=== PATIENT | male | born 1995 | race Hispanic/Latino ===

== ENCOUNTER 2018-10-03 11:29 | Emergency (ER) | payer OTHER, SELFPAY ==
[2018-10-03 11:33] VITALS: PULSE 75; RESP 14; TEMP 36.4; O2SAT 100
[2018-10-03 11:37] VITALS: BP 139/84; PULSE 78; RESP 18; O2SAT 100
--- NOTE | 2018-10-03 14:19 | DI.US.S_ITS ---
PROCEDURE: US SCROTUM INDICATIONS: LEFT TESTICULAR PAIN AND SWELLING TECHNIQUE: Real-time scanning was performed of the scrotum and testicles, with image documentation. Color and pulse Doppler interrogation was performed of both testicles. COMPARISON: None. FINDINGS: Right: Testicle is normal in size at 3.9 x 3.1 x 2.3 and cm, and homogenous in echotexture. Epididymis is normal in overall size and morphology. No hydrocele or varicoceles. Overlying scrotal skin is normal in thickness. A 6 mm epididymal head cyst is evident. Left: Testicle is normal in size at 4.0 x 2.9 x 2.0 cm, and homogeneous in echotexture. Epididymis is normal in overall size and morphology. No hydrocele or varicoceles. Overlying scrotal skin is normal in thickness. Doppler: Color and pulse Doppler demonstrate normal and symmetric arterial flow in both testicles. Other: There is a fat containing left inguinal hernia with a opening defect of 2.6 cm. No bowel is seen extending into this hernia. IMPRESSION: 1. No evidence of testicular torsion, epididymal orchitis, or testicular mass. 2. 6 mm epididymal head cyst. 3. Moderate-sized fat containing left renal hernia. Dictated by: Marbin Lovell M.D. on 10/03/2018 at 14:29 Approved by: Marbin Lovell M.D. on 10/03/2018 at 14:32
--- NOTE | 2018-10-03 14:22 | ED.MALEGU ---
HPI - Male Genitourinary General Chief complaint: Abdominal Pain Stated complaint: PAIN IN GROIN Time Seen by Provider: 10/03/18 14:12 Source: patient Mode of arrival: ambulatory Limitations: no limitations History of Present Illness HPI Narrative: Patient is a 23-year-old male who presents with all left testicular pain. He felt something happened 2 days ago when he was at work he bent over and lifted something he said it was uneven that heavy. He instantly felt some pain and swelling. It hurts every time he breathes or moves. Regular bowel movements although he does feel a discomfort with bowel movement. No nausea vomiting. No prior history of hernia MD Complaint: testicle pain Onset (ago): day(s) (2) Duration: constant Location: left testicle and left inguinal region Related Data Home Medications Medication Instructions Recorded Confirmed No Known Home Medications 10/03/18 10/03/18 Allergies Allergy/AdvReac Type Severity Reaction Status Date / Time No Known Drug Allergies Allergy Verified 10/03/18 11:37 Review of Systems Review of Systems ROS Unobtainable: All systems reviewed & are unremarkable except as noted in HPI and below Constitutional Denies chills, Denies fever(s), Denies lethargy and Denies weakness Cardiovascular Denies chest pain, Denies irregular heart rhythm, Denies lightheadedness, Denies palpitations and Denies orthopnea Genitourinary Reports as per HPI Musculoskeletal Denies back pain, Denies muscle weakness, Denies numbness and Denies tingling Integumentary/Breasts Denies pruritus, Denies erythema, Denies rash and Denies wounds Neurologic Denies numbness, Denies tingling and Denies weakness Endocrine Denies palpitations [facility] Medical History Patient denies significant medical history (Acute) Social History Smoking Status: Never smoker Social History Smoking Status: Never smoker Exam Initial Vital Signs Initial Vital Signs: Vital Signs Temperature 97.6 F 10/03/18 11:33 Pulse Rate 75 10/03/18 11:33 Respiratory Rate 14 10/03/18 11:33 Pulse Oximetry 100 10/03/18 11:33 GENERAL: Standing in room appears in pain CARDIOVASCULAR: peripheral pulses in tact, cap refill <2 sec RESPIRATORY: No respiratory distress, speaks in full sentences without difficulty : Mild left inguinal swelling testicles descended hernia appreciated left testicle no significant swelling EXTREMITIES: Normal range of motion, no clubbing or edema. Neurovascularly intact NEUROLOGICAL: Cranial nerves II through XII grossly intact. Normal gait and speech. SKIN: Warm, dry, no petechiae, no rashes or lesions. Course Orders Ordered: ED Orders 10/03/18 14:19 US scrotum Stat Discontinued Medications Hydromorphone HCl (Dilaudid) 1 mg SUBCUT Q4H PRN PRN Reason: Pain, Severe (7-10) Last Admin: 10/03/18 15:17 Dose: 1 mg Vital Signs - 8 hr 10/03/18 11:33 10/03/18 11:37 10/03/18 16:08 Temperature 97.6 F 98.7 F Pulse Rate 75 78 Respiratory Rate 14 18 Blood Pressure Blood Pressure [Left Arm] 139/84 Pulse Oximetry 100 100 10/03/18 16:10 Temperature 98.7 F Pulse Rate 71 Respiratory Rate 18 Blood Pressure 132/69 Blood Pressure [Left Arm] Pulse Oximetry 98 MDM - Male Genitourinary Imaging Data US Scrotum: Radiologist's impression: PROCEDURE: US SCROTUM INDICATIONS: LEFT TESTICULAR PAIN AND SWELLING TECHNIQUE: Real-time scanning was performed of the scrotum and testicles, with image documentation. Color and pulse Doppler interrogation was performed of both testicles. COMPARISON: None. FINDINGS: Right: Testicle is normal in size at 3.9 x 3.1 x 2.3 and cm, and homogenous in echotexture. Epididymis is normal in overall size and morphology. No hydrocele or varicoceles. Overlying scrotal skin is normal in thickness. A 6 mm epididymal head cyst is evident. Left: Testicle is normal in size at 4.0 x 2.9 x 2.0 cm, and homogeneous in echotexture. Epididymis is normal in overall size and morphology. No hydrocele or varicoceles. Overlying scrotal skin is normal in thickness. Doppler: Color and pulse Doppler demonstrate normal and symmetric arterial flow in both testicles. Other: There is a fat containing left inguinal hernia with a opening defect of 2.6 cm. No bowel is seen extending into this hernia. IMPRESSION: 1. No evidence of testicular torsion, epididymal orchitis, or testicular mass. 2. 6 mm epididymal head cyst. 3. Moderate-sized fat containing left renal hernia. Dictated by: Marbin Lovell M.D. on 10/03/2018 at 14:29 MDM Narrative Medical decision making narrative: Hernia initially felt on exam very the small. His however after pain medicine and resting re-examined hernia no longer felt patient's pain significantly improved. Hernia is reducible. No need for emergent surgery. Recommended outpatient follow-up. Discharge Plan Departure Patient Disposition: Home Clinical Impression: Hernia, inguinal, left Discharge Date/Time: 10/03/18 16:10 Interventions: ED Discharge Assessment Last Done: 10/03/18 16:10 Instructions: Groin Hernia -- Adult Activity Restrictions/Additional Instructions: *You have been diagnosed with left inguinal hernia *What to do: This will eventually require surgical repair. If you have pain returned try to reduce and apply pressure to the area yourself. If it is not reducible then return to the ER. Proper lifting techniques. No lifting anything more than 15-20 lb *Continue to take medications as directed Motrin 600 mg every 6-8 hours if needed for pain *Follow up with your primary care provider in 2-3 days *Return to ER if you should have increasing pain or any new, worsening or concerning symptoms Prescriptions: No Action No Known Home Medications RF: 0 Referrals: [facility] [Provider Group]
[2018-10-03] MEDS: HYDROMORPHONE 2 MG INJ 1 MG SUBCUT (15:17)
[2018-10-03 16:08] VITALS: TEMP 37.1
[2018-10-03 16:10] VITALS: BP 132/69; PULSE 71; RESP 18; TEMP 37.1; O2SAT 98
== END 2018-10-03 16:10 | disposition home or self-care (01) ==
PROVIDERS: Emergency Provider Emergency Medicine
DX: K40.90 Unilateral inguinal hernia, without obstruction or gangrene, not specified as recurrent (principal); X50.0XXA Overexertion from strenuous movement or load, initial encounter; Y99.0 Civilian activity done for income or pay
CPT/HCPCS: 76870; 99282; 99284; J1170